=== PATIENT | male | born 1985 | race Caucasian/White ===

== ENCOUNTER 2018-12-13 16:40 | Emergency (ER) | payer MEDICARE, OTHER ==
[~2018-12-13] VITALS: Ht 172.7 cm; Wt 79.4 kg
[2018-12-13] MEDS ORDERED: TRUVADA 100 MG1 EACH (17:54)
[2018-12-13] MEDS ORDERED: Hydroxyzine HCl50 MG (17:54)
[2018-12-13] MEDS ORDERED: ALBU90OI6 INH (17:54)
[2018-12-13] MEDS ORDERED: GABA300 PO (17:54)
[2018-12-13] MEDS ORDERED: LISI20 PO (17:55)
[2018-12-13] MEDS ORDERED: BUPR150ER PO (17:55)
[2018-12-13] MEDS ORDERED: FENO160 PO (17:55)
[2018-12-13] MEDS ORDERED: LIDO700A20 TOP (18:55)
== END 2018-12-13 19:05 | disposition home or self-care (01) ==
LOC: ER 16:40
DX: M54.5 Low back pain (principal); M54.6 Pain in thoracic spine; W18.30XA Fall on same level, unspecified, initial encounter; Z88.8 Allergy status to other drugs, medicaments and biological substances; Z79.899 Other long term (current) drug therapy; G43.909 Migraine, unspecified, not intractable, without status migrainosus; F17.210 Nicotine dependence, cigarettes, uncomplicated; I10 Essential (primary) hypertension; E11.9 Type 2 diabetes mellitus without complications
CPT/HCPCS: 72070; 72100; 96372; 99283-25; J1885